=== PATIENT | female | born 1950 | race Caucasian/White ===

== ENCOUNTER 2019-06-15 11:30 | Emergency (ER) | payer MEDICARE ==
--- OUTSIDE RECORDS SUMMARY | 2019-06-15 11:51 | XMS REPORT | Continuity of Care Document ---
:1950 External Reference #:[id number] Author Name Kelly Durant M.D. Address [address] [facility] [place] [address] Care Team Providers Name Role Phone Kelly Durant Care Team Information Automation Tech Unavailable Kelly Durant Primary Care Physician Unavailable Payers Date Identification Numbers Payment Provider Subscriber Effective: 2018 Policy Number: [id number] [employer] Medicare o [employer] Number: [id number] [id number] PayID: [id number] [place] [address] Family History Date Family Member(s) Observation Comments General No fam hx lung,colon, breast CA. Father 81, pneumonia. Mother 73 Stomach Cancer. First Daughter excellent health. First Brother colectomy - Crohn's, DM. [place] Second Brother not close. First Sister 67 dt transverse myelitis x 27 yrs, wheelchair bound, due to virus. Social History Type Date Description Comments Sex Unknown Education Highest level of education completed is a bachelor's degree. [employer], [place]. Marital Status Patient is Sleep Typically sleeps 7 hours a night. 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 Tobacco Use Start: Unknown Never Smoked Cigarettes Smoking Status Reviewed: 04/25/19 Never Smoked Cigarettes ETOH Use Some 3-4 glasses of wine a week. Tobacco Use Start: Unknown Patient has never smoked Exercise Type/Frequency goes to gym 6/7 days, Current walks on Sunday with a friend - 30 minutes. includes strength training. Seat Belt/Car Seat Always uses a seat belt Allergies, Adverse Reactions, Alerts Active Allergies Reaction Severity Comments Date Flu Virus Vaccine throat closes 07/25/2013 Inactive Allergies NKDA 10/13/2011 Medications Active Medications SIG Qnty Indications Ordering Provider Date Pravastatin Sodium take one tablet 30tabs E78.49 Kelly Durant, 2018 10mg by mouth one M.DLuz Tablets time at night History Medications No Active Medications Unknown 07/31/2017 - 04/25/2019 Vitamin D take 1 capsule 12caps Kelly Mullins 10/27/2015 - (Ergocalciferol) by mouth once Mariely Durant 07/31/2017 [id number] weekly for 12 Capsules weeks. mail to patient. Cyclobenzaprine HCL 1-2 by mouth at 30tabs S29.012 Rona Diaz, 2015 - 5mg bedtime as A LICENSED AND CERTIFIED MIDWIFE 07/31/2017 Tablets needed No Active Medications Unknown 06/21/2013 - 10/19/2015 Prednisone 2 po qd x 5d, 15tabs Lily 06/11/2013 - 20mg Tablets then 1 po qd x Sharona Beasley 06/21/2013 5d take with food No Active Medications Unknown 02/07/2013 - 06/11/2013 Azithromycin take 2 tablets 6tabs 786.2 Rona Diaz, 12/20/2012 - 250mg Tablets by mouth today LICENSED AND CERTIFIED MIDWIFE 02/07/2013 then take 1 tablet daily for next 4 days No Active Medications Unknown 10/13/2011 - 12/20/2012 Tessalon Perles one to two tabs 30caps 465.9 Getachew López 12/26/2007 - 100mg po tid prn Mariely De La Rosa 07/29/2008 Capsules cough Doxycycline Hyclate 1 po bid 20caps 465.9 Getachew Lo. 12/26/2007 - 100mg Mariely De La Rosa 07/29/[address] Erick Berrios 2 tabs day 1 6tabs Cheyanne bolivar 09/19/2006 - 250mg Tablets Mariely Núñez 04/26/2007 1 tab qd days 2 thru 5 Immunizations CPT Code Status Date Vaccine Lot # [id number] Given 10/22/2015 Pneumococcal Conjugate Vacc-13 [id number] Given 07/24/2013 High-Dose, Influenza Virus Vacccine-fluzone 65 and [id number] older [id number] Given 02/07/2013 Pneumococcal Immunization [id number] Given 02/07/2013 Tdap Tetanus, W Pertussis [id number] Vital Signs Date Vital Result Comment 04/25/2019 2:13pm BP Systolic 130 mmHg BP Diastolic 70 mmHg Heart Rate 64 /min Body Temperature 97.3 F Respiratory Rate 16 /min Height 58.5 inches 4'10.50" Weight 117.00 lb BMI (Body Mass Index) 24.0 kg/m2 01/21/2019 4:13pm BP Systolic 128 mmHg BP Diastolic 70 mmHg Heart Rate 60 /min Body Temperature 97.9 F Height 59 inches 4'11" Weight 118.00 lb BMI (Body Mass Index) 23.8 kg/m2 07/31/2018 4:01pm BP Systolic 100 mmHg BP Diastolic 74 mmHg BP Systolic Recheck 170 mmHg Heart Rate 68 /min Body Temperature 98.7 F Respiratory Rate 16 /min Weight 119.00 lb 05/14/2018 10:31am BP Systolic 148 mmHg BP Diastolic 80 mmHg Heart Rate 56 /min Body Temperature 97.9 F Respiratory Rate 16 /min Weight 120.12 lb 01/01/2018 10:23am BP Systolic 116 mmHg BP Diastolic 78 mmHg Heart Rate 62 /min Body Temperature 97.9 F Weight 124.12 lb 07/31/2017 11:17am BP Systolic 138 mmHg BP Diastolic 80 mmHg Heart Rate 68 /min Body Temperature 98.0 F Respiratory Rate 16 /min Height 59 inches 4'11" Weight 127.00 lb BMI (Body Mass Index) 25.6 kg/m2 10/22/2015 1:05pm BP Systolic 136 mmHg BP Diastolic 80 mmHg Heart Rate 80 /min Body Temperature 98.1 F Respiratory Rate 16 /min Height 59 inches 4'11" Weight 127.00 lb BMI (Body Mass Index) 25.6 kg/m2 10/19/2015 2:50pm BP Systolic 142 mmHg BP Diastolic 70 mmHg Heart Rate 78 /min Body Temperature 98.8 F Respiratory Rate 16 /min Height 59 inches 4'11" Weight 127.00 lb BMI (Body Mass Index) 25.6 kg/m2 06/11/2013 10:23am BP Systolic 130 mmHg BP Diastolic 82 mmHg Heart Rate 80 /min Body Temperature 98.3 F Respiratory Rate 16 /min Height 59 inches 4'11" Weight 128.00 lb BMI (Body Mass Index) 25.9 kg/m2 02/07/2013 1:01pm BP Systolic 122 mmHg BP Diastolic 80 mmHg Heart Rate 70 /min Body Temperature 97.6 F Respiratory Rate 16 /min Height 59 inches 4'11" Weight 126.00 lb BMI (Body Mass Index) 25.4 kg/m2 12/20/2012 10:37am BP Systolic 122 mmHg BP Diastolic 82 mmHg Heart Rate 85 /min Body Temperature 98.3 F Respiratory Rate 16 /min O2 % BldC Oximetry 95 % Height 59 inches 4'11" Weight 128.00 lb BMI (Body Mass Index) 25.9 kg/m2 10/13/2011 4:29pm BP Systolic 138 mmHg BP Diastolic 90 mmHg Heart Rate 54 /min Height 59 inches 4'11" Weight 132.00 lb BMI (Body Mass Index) 26.7 kg/m2 11/01/2009 9:09am BP Systolic 110 mmHg BP Diastolic 76 mmHg Heart Rate 74 /min Height 59 inches 4'11" Weight 130.00 lb BMI (Body Mass Index) 26.3 kg/m2 07/29/2008 2:35pm BP Systolic 122 mmHg BP Diastolic 80 mmHg Heart Rate 64 /min Body Temperature 98.2 F Height 59.5 inches 4'11.50" Weight 131.00 lb BMI (Body Mass Index) 26.0 kg/m2 12/26/2007 4:03pm BP Systolic 130 mmHg BP Diastolic 70 mmHg Heart Rate 80 /min Body Temperature 100.9 F Height 59.5 inches 4'11.50" 04/26/2007 2:23pm BP Systolic 120 mmHg BP Diastolic 70 mmHg Heart Rate 60 /min Height 59.5 inches 4'11.50" Weight 127.00 lb BMI (Body Mass Index) 25.2 kg/m2 09/19/2006 12:38pm Heart Rate 68 /min Body Temperature 98.8 F Height 59.5 inches 4'11.50" Weight 131.00 lb BMI (Body Mass Index) 26.0 kg/m2 10/20/2005 3:24pm BP Systolic 102 mmHg BP Diastolic 60 mmHg Heart Rate 60 /min Height 59.5 inches 4'11.50" Weight 139.62 lb BMI (Body Mass Index) 27.7 kg/m2 Results Test Date Facility Test Result H/L Range Note Comprehensive Metabolic 04/18/2019 Og Rebecca(fma) Sodium 135 mEq/L 134-149 Prof Potassium 4.3 mEq/L 3.6-5.5 Chloride 103 mEq/L 94-112 Carbon Dioxide 23 mEq/L 21-32 Glucose 98 mg/dL 70-105 BUN 15 mg/dL 6-26 Creatinine 0.8 mg/dL 0.6-1.4 BUN/Creat Ratio 18.8 CALC 8.0-36.0 Calcium 9.3 mg/dL 8.6-10.2 Total Protein 6.9 g/dL 6.4-8.3 Albumin 4.3 g/dL 3.8-5.5 Globulin 2.6 g/dL 2.0-4.8 A/G Ratio 1.7 CALC 0.6-2.3 Alk. Phosphatase 75 U/L 30-110 Alt (SGPT) 11 U/L 7-35 Ast (Sgot) 17 U/L 5-34 Total Bilirubin 0.8 mg/dL 0.2-1.3 GFR Non- >60 ml/min/1.73m^ >=60 GFR >60 ml/min/1.73m^ >=60 Laboratory test finding 04/18/2019 Og Rebecca(a) TSH 1.85 mIU/L 0.50-6.00 CBC Electronic Fma 04/18/2019 Og Rebecca(a) WBC 4.8 x10^3/UL 4.0- 10.0 RBC 4.41 x10^6/UL 3.93-6.00 HGB 13.0 g/dL 12.0-17.0 HCT 39 % 35-50 MCV 87.8 fL 80.0-95.0 MCH 29.5 pg 25.6-32.2 MCHC 33.6 g/dL 32.2-36.0 RDW-CV 12.3 % 11.6-14.4 PLT 137 x10^3/UL Low 163-400 1 MPV 12.2 fL 9.4-12.4 Ruchi# 3.02 x10^3/UL 1.56-6.13 Lymph# 1.23 x10^3/UL 1.18-3.74 [place]# 0.45 x10^3/UL 0.24-0.82 Eos # 0.1 x10^3/UL 0.0-0.5 Baso # 0.04 x10^3/UL 0.01-0.08 Ruchi% 62.4 % 34.0-70.0 Lymph % 25.4 % 20.0-52.0 [place]% 9.3 % 5.0-12.0 Eos% 1.9 % 0.7-7.0 Baso% 0.8 % 0.1-1.2 Lipid Profile 12/30/2018 Earle Rebecca([facility]) Cholesterol 233 mg/dL High 120-200 Triglycerides 80 mg/dL 30-200 HDL Cholesterol 71 mg/dL 30-85 LDL (Calculated) 146 CALC High 0-129 VLDL Cholesterol 16 mg/dL 0-50 HDL Risk Factor 3.3 CALC 0.0-4.4 Lipid Profile 07/25/2018 Earle Rebecca([facility]) Cholesterol 257 mg/dL High 120-200 Triglycerides 154 mg/dL 30-200 HDL Cholesterol 78 mg/dL 30-85 LDL (Calculated) 148 CALC High 0-129 VLDL Cholesterol 31 mg/dL 0-50 HDL Risk Factor 3.3 CALC 0.0-4.4 Laboratory test finding 01/01/2018 Earle Fernandez([facility]) TSH 2.22 mIU/L 0.50-6.00 CBC Electronic a 01/01/2018 Earle Fernandez([facility]) WBC 4.7 x10^3/UL 4.0- 10.0 RBC 4.54 x10^6/UL 3.93-6.00 HGB 13.3 g/dL 12.0-17.0 HCT 39 % 35-50 MCV 86.6 fL 80.0-95.0 MCH 29.3 pg 25.6-32.2 MCHC 33.8 g/dL 32.2-36.0 RDW-CV 12.2 % 11.6-14.4 PLT 183 x10^3/UL 163-400 MPV 10.3 fL 9.4-12.4 Ruchi# 2.88 x10^3/UL 1.56-6.13 Lymph# 1.32 x10^3/UL 1.18-3.74 [place]# 0.39 x10^3/UL 0.24-0.82 Eos # 0.1 x10^3/UL 0.0-0.5 Baso # 0.03 x10^3/UL 0.01-0.08 Ruchi% 61.6 % 34.0-70.0 Lymph % 28.3 % 20.0-52.0 [place]% 8.4 % 5.0-12.0 Eos% 1.1 % 0.7-7.0 Baso% 0.6 % 0.1-1.2 Comprehensive Metabolic 01/01/2018 Earle Fernandez([facility]) Sodium 141 mEq/L 134-149 Prof Potassium 3.9 mEq/L 3.6-5.5 Chloride 103 mEq/L 94-112 Carbon Dioxide 32 mEq/L 21-32 Glucose 101 mg/dL 70-105 BUN 14 mg/dL 6-26 Creatinine 0.7 mg/dL 0.6-1.4 BUN/Creat Ratio 20.0 CALC 8.0-36.0 Calcium 9.2 mg/dL 8.6-10.2 Total Protein 7.2 g/dL 6.4-8.3 Albumin 4.5 g/dL 3.8-5.5 Globulin 2.7 g/dL 2.0-4.8 A/G Ratio 1.7 CALC 0.6-2.3 Alk. Phosphatase 74 U/L 30-110 Alt (SGPT) 11 U/L 7-35 Ast (Sgot) 15 U/L 5-34 Total Bilirubin 0.5 mg/dL 0.2-1.3 GFR Non- >60 ml/min/1.73m^ >=60 GFR >60 ml/min/1.73m^ >=60 Lipid Profile 01/01/2018 Earle Fernandez([facility]) Cholesterol 242 mg/dL High 120-200 Triglycerides 79 mg/dL 30-200 HDL Cholesterol 70 mg/dL 30-85 LDL (Calculated) 156 CALC High 0-129 VLDL Cholesterol 16 mg/dL 0-50 HDL Risk Factor 3.5 CALC 0.0-4.4 Laboratory test 01/07/2016 [facility] Surgical SEE RESULT 2 finding Pathology BELOW Laboratory test 10/22/2015 Earle Fernandez([facility]) TSH 2.71 mIU/L 0.50-6. finding 00 Free T4 0.96 ng/dL 0.75-1.54 Vitamin D25 20 Low 30-100 Complete Blood Count 10/22/2015 Earle Fernandze([facility]) WBC 4.4 x10^3/UL 3.6 -9.6 RBC 3.95 x10^6/UL 3.90-5.70 HGB 10.8 g/dL Low 12.1-17.2 3 HCT 32 % Low 36-50 MCV 82.0 fL Low 82.2-97.4 MCH 27.3 pg Low 27.6-33.3 MCHC 33.3 g/dL 33.0-35.5 RDW 14.3 % High 11.6-13.7 PLT 181 x10^3/UL 150-400 MPV 8.8 fL 7.4-10.4 Gran # 2.8 x10^3/UL 1.5-7.2 Lymph# 1.4 x10^3/UL 0.7-4.9 [place]# 0.2 x10^3/UL 0.1-0.9 Gran % 60.1 % 42.2-75.2 Lymph % 33.4 % 20.5-51.1 [place]% 6.5 % 1.7-9.3 Comprehensive Metabolic 10/22/2015 Earle Rebecca(a) Sodium 138 mEq/L 134-149 Prof Potassium 4.2 mEq/L 3.6-5.5 Chloride 98 mEq/L 94-112 Carbon Dioxide 24 mEq/L 21-32 Glucose 103 mg/dL 70-105 BUN 14 mg/dL 6-26 Creatinine 0.7 mg/dL 0.6-1.4 BUN/Creat Ratio 20.0 CALC 8.0-36.0 Calcium 9.3 mg/dL 8.6-10.2 Total Protein 7.5 g/dL 6.4-8.3 Albumin 4.1 g/dL 3.8-5.5 Globulin 3.4 g/dL 2.0-4.8 A/G Ratio 1.2 CALC 0.6-2.3 Alk. Phosphatase 75 U/L 30-110 Alt (SGPT) 11 U/L 7-35 Ast (Sgot) 20 U/L 5-34 Total Bilirubin 0.3 mg/dL 0.2-1.3 GFR Non- >60 ml/min/1.73m^ >=60 GFR >60 ml/min/1.73m^ >=60 Ua - Micro (Fma) 02/07/2013 [facility] Appearance CLEAR (607)- - Color YELLOW Glucose NEG Bilirubin NEG Ketones NEG SP Grav <=1.005 Blood NEG PH 5.5 Protein NEG Urobil 0.2 Nitrite NEG Leukocytes (Fma/CMC/[facility]) TRACE # Hyaline - /Lpf Granular - /Lpf WBC (a,[facility]) 0-1 # RBC - Mucus - /Lpf Epith - /Lpf Bacteria - /Hpf Amorphous - /Lpf Crystals, Fluid (Fma/CMC/CTX) - Z#Comments - CBC Electronic ([facility]) 02/07/2013 [facility] WBC 4.8 3.6-9.6 (607)- - RBC 3.93 3.90-5.70 Hemoglobin (Fma/CMC/CTX) 11.2 g/dL Low 12.1 - 17.2 Hematocrit (Fma/CMC/CTX) 33.8 % Low 36.1 - 50.3 Platelets 230 10^3/ul 150-400 Lymph% 36.7 20.5-51.1 Mixed% 6.6 Neutrophils % 56.7 Mean Corpuscular Vol 86 82.2-97.4 Mean Corpuscular Hemoglobin 28.4 27.6-33.3 Mean Corpuscular Hemo Concen 33.0 32.0-36.0 RDW 12.2 11.6-13.7 Mean Platelet Volume 6.3 Low 6.5-11.0 Laboratory test 02/07/2013 Og Reebcca([facility]) TSH 2.09 mIU/L 0.50-6.00 finding Comprehensive 02/07/2013 Og Rebecca(a) Albumin 4.3 g/dL 3.8-5.5 Metabolic Prof Alk. Phos. 83 U/L 30-110 Alt (SGPT) 13 U/L 7-35 Ast (Sgot) 20 U/L 5-34 BUN 13 mg/dL 6-26 Calcium 9.0 mg/dL 8.6-10.2 Chloride 99 mEq/L 94-112 Creatinine 0.9 mg/dL 0.6-1.4 Carbon Dioxide 27 mEq/L 21-32 Glucose 102 mg/dL 70-105 Sodium 137 mEq/L 134-149 Total Bilirubin 0.5 mg/dL 0.2-1.3 Total Protein 7.1 g/dL 6.3-8.1 Potassium 3.7 mEq/L 3.6-5.5 Globulin 2.8 g/dL 2.0-4.8 A/G Ratio 1.6 Calc 0.6-2.3 BUN/Creat Ratio 14.9 Calc 8.0-36.0 Laboratory test 02/07/2013 Og Rebecca(a) Free T4 0.94 ng/dL 0.75- 1.54 finding Ua - Micro ([facility]) 11/01/2009 [facility] Appearance CLEAR (607)- - Color YELLOW Glucose NEG Bilirubin NEG Ketones NEG SP Grav <=1.005 Blood TRACE-INTACT # PH 6.0 Protein NEG Urobil 0.2EU/DL Nitrite NEG Leukocytes (Fma/CMC/[facility]) NEG Hyaline - /Lpf Granular - /Lpf WBC (Fma,[facility]) 1-2 # RBC 2-3 # Mucus - /Lpf Epith RARE /Lpf # Bacteria - /Hpf Amorphous - /Lpf Crystals, Fluid (Fma/CMC/CTX) - CBC ([facility]) 11/01/2009 [facility] WBC 4.3 3.6-9.6 (607)- - RBC 4.01 3.90-5.70 Hemoglobin (Fma/CMC/CTX) 11.6 g/dL Low 12.1 - 17.2 Hematocrit (Fma/CMC/CTX) 34.3 % Low 36.1 - 50.3 Mean Corpuscular Vol 85.5 82.2-97.4 Mean Corpuscular Hemaglobin 28.9 27.6-33.3 Mean Corpuscular Hemo Concen 33.8 33.0-36.0 Platelets 193 10^3/ul 150-400 Lymph% 27.1 20.5-51.1 Mixed% 7.5 Neutrophils % 65.4 RDW 12.6 11.6-13.7 Mean Platelet Volume 9.5 7.4-10.4 Laboratory test 11/01/2009 [facility] Vitamin 52.9 pg/mL 10.0-75.0 finding 28 [facility],,[address] [place] [address] Dihydro [phone] Comprehensive 11/01/2009 Og Rebecca(a) Albumin 4.4 g/dL 3.8-5.5 Metabolic Prof Alk. Phos. 65 U/L 30-110 Alt (SGPT) 13 U/L 7-35 Ast (Sgot) 20 U/L 5-34 BUN 15 mg/dL 6-26 Calcium 9.5 mg/dL 8.6-10.2 Chloride 98 mEq/L 94-112 Creatinine 0.8 mg/dL 0.6-1.4 Carbon Dioxide 28 mEq/L 21-32 Glucose 100 mg/dL 70-105 Sodium 136 mEq/L 134-149 Total Bilirubin 0.4 mg/dL 0.2-1.3 Total Protein 7.4 g/dL 6.3-8.1 Potassium 4.2 mEq/L 3.6-5.5 Globulin 3.0 g/dL 2.0-4.8 A/G Ratio 1.5 Calc 0.6-2.2 BUN/Creat Ratio 18.2 Calc 8.0-36.0 Lipid Profile 11/01/2009 Og Rebecca(a) Cholesterol 208 mg/dL High 120-200 HDL 65 mg/dL 30-85 Triglycerides 72 mg/dL 30-200 HDL Risk Factor 3.2 CALC Low 4.2-7.0 LDL (Calculated) 129 CALC 0-129 VLDL (Calculated) 14 mg/dL 0-50 Laboratory test 11/01/2009 Og Rebecca(a) TSH 2.42 mIU/L 0.50-6.00 finding Laboratory test 11/01/2009 [facility] Thin Prep SEE NOTE [address] W/HPV(Lsil/R[place]EE/ [place] [address] Asc) [phone] Ua - Non Micro 04/26/2007 [facility] Medicine Appearance CLEAR ([facility]) (607)- - Color LT YELLOW Glucose NEG Bilirubin NEG Ketones NEG SP Grav 1.015 Blood NEG PH 7.0 Protein NEG Urobil 0.2 Nitrite NEG Leukocytes (Fma/CMC/[facility]) NEG Laboratory test 04/26/2007 [facility] Thin Prep SEE NOTE [address] W/HPV(Lsil/RENEE/Asc) [place] [address] [phone] Comp Metabolic 10/27/2005 [facility] Glucose, Serum 103 70-1 (a) Female (607)- - (Fma/CMC/CTX) mg/dL 05 BUN (Fma/CMC/[facility]) 14 mg/dL 6-26 Creatinine, Serum 0.8 mg/dL 0.6-1.4 BUN/Creatinin Ratio 16.5 8.0-36 Sodium 140 134-149 Potassium 4.1 3.6-5.5 Chloride 96 mEq/L 94-112 Co2 28 21-32 Calcium (Fma/CMC/[facility]) 9.3 mg/dL 8.6-10.2 Total Protein 7.4 g/dL 6.3-8.1 Albumin (a/CMCC/[facility]) 4.1 3.8-5.5 Globulin 3.3 2.0-4.8 A/G Ratio (A/G Ratio) 1.2 0.6-2.2 Alkaline Phosphatase (F/C/CTX) 90 U/L 30-110 Alt (SGPT) Female ([facility]) 9 7-35 Ast Sgot 18 U/L 5-34 Bilirubin, Total 0.8 mg/dL 0.2-1.3 Lipid Profile ([facility]) 10/27/2005 [facility] Medicine Cholesterol 229 mg/dL High 120-200 Female (607)- - Triglyceride 83 mg/dL 30-200 HDL-Chol 72 mg/dL 30-85 LDL, Calculated (Fma/CMC) 140 CALC High 0-129 LDL Direct (FM/CMC/[facility]) - mg/dL 0-130 VLDL 17 0-50 HDL Risk Factor ([facility]) 3.2 CALC Low 4.2-7.0 Ua - Non Micro ([facility] [place]) 10/20/2005 Family [facility] Appearance clear (607)- - Color lt yellow Glucose neg Bilirubin neg Ketones neg SP Grav 1.010 Blood neg PH 6.5 Protein neg g/dL Low 6.3-8.1 Urobil 0.2 Nitrite neg Leukocytes neg 1 RESULTS VERIFIED BY REPEAT ANALYSIS 2 SEE RESULT BELOW Name: LIGIAPJ DELEON : [address]: Jj Waddell MD Acct: [id number] Unit: [id number] AGE: 65 Location: ENDOCEC Re01/07/16 SEX: F Status: REG REF SPEC: [id number] MARCIA: 01/07/16- SUBM DR: Jj Waddell MD REQ: [id number] RECD: 01/07/16 STATUS: SURY BAR DR: Kelly Durant MD _ ORDERED: LEVEL IV/2 FINAL DIAGNOSIS 1. Colon, cecum, biopsy: -- Tubular adenoma. -- No high grade dysplasia or malignancy. 2. 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 CLINICAL HISTORY No history given POST-OPERATIVE DIAGNOSIS Colonoscopy into terminal ileum: prep good, 3 polyps - removed. Conclusions/ Plan: 3 polyps - removed. GROSS DESCRIPTION 1. The specimen is received in formalin labeled, Cecal Polyps, and consists of two ellison-pink irregular to polypoid soft tissue fragments measuring 0.7 x 0.3 x 0.2 cm and 0.6 x 0.5 x 0.2 cm. The larger fragment is inked and bisected. The entire specimen is submitted in one cassette. 2. The specimen is received in formalin labeled, Biopsy Rectal Polyp, and consists of a 0.3 x 0.3 x 0.2 cm ellison-pink polypoid soft tissue fragment, which is entirely submitted in one cassette. Signed (signature on file) Chris Ball MD [id number] END OF REPORT * ML = Testing performed at Main Lab DEPARTMENT OF PATHOLOGY, [address] [place] [address] Chris Ball M.D. Director [facility] # [id number] 3 RESULTS VERIFIED BY REPEAT ANALYSIS 4 [facility]. DEPARTMENT OF PATHOLOGY or Extension 5813 RECORDIST CYTOLOGY REPORT PATIENT: PJ FERGUSON : 1950 AGE: 59 Y SEX: F ACCT: [id number] PROCEDURE DATE: 11/01/2009 DATE RECEIVED: 11/02/2009 REQUESTING PHYSICIAN: CHEYANNE DOMINGO MD [place] [facility] [place]. [id number] PATIENT DATA: [id number] SPECIMEN SUBMITTED: * * (HPVII) THIN PREP W/HPV (LSIL/ASC/RENEE) * * CERVICAL/ENDOCERVICAL RELEVANT HISTORY: : 1 Para: 1 Prev.normal: 2006 Comment: LMP:POST SPECIMEN ADEQUACY SATISFACTORY FOR EVALUATION, ENDOCERVICAL TRANSFORMATION ZONE COMPONENT PRESENT GENERAL CATEGORIZATION NEGATIVE FOR INTRAEPITHELIAL LESIONS OR MALIGNANCY ADDITIONAL COPIES SENT TO: Screened/Rescreened by: Electronically Signed by: TERRANCE JEAN BAPTISTE(ASCP) Signed Date/Time 11/03/2009 14:09 Thin Prep Pap tests are examined with an FDA-approved location-guidance system (14278). Performed @ [facility] [address] [place] [id number] "" 5 [facility]. DEPARTMENT OF PATHOLOGY or Extension 7059 RECORDIST CYTOLOGY REPORT PATIENT: PJ FERGUSON : 1950 AGE: 57 Y SEX: F ACCT: [id number] PROCEDURE DATE: 04/26/2007 DATE RECEIVED: 04/29/2007 REQUESTING PHYSICIAN: CHEYANNE DOMINGO MD LOCATION: [facility] [place]. [id number] PATIENT DATA: [id number] SPECIMEN SUBMITTED: * * (HPVII) THIN PREP W/HPV (LSIL/ASC/RENEE) * * ENDOCERVICAL RELEVANT HISTORY: : 1 Para: 1 Contraceptive: N/A Prev.normal: 2004 SPECIMEN ADEQUACY SATISFACTORY FOR EVALUATION. THE PRESENCE OF TRANSFORMATION ZONE COMPONENT CANNOT BE DETERMINED DUE TO ATROPHIC CHANGES. GENERAL CATEGORIZATION NEGATIVE FOR INTRAEPITHELIAL LESIONS OR MALIGNANCY ADDITIONAL COPIES SENT TO: Screened/Rescreened by: Electronically Signed by: TERRANCE SANDY(ASCP) Signed Date and Time: 05/01/2007 10:08 Thin Prep Pap tests are examined with an FDA-approved location-guidance system (82154). Performed @ [facility], [address] [place], [place] [address] Procedures Date Code Description Status 01/21/2019 90195 Electrocardiogram Complete Completed 06/07/2017 92559341 Mammogram Completed 01/07/2016 62328520 Colonoscopy Completed 07/30/2014 [id number] Mammogram Completed 12/20/2012 26084 Pulse Oximetry Completed 10/20/2011 49603253 Mammogram Completed 11/11/2009 [id number] Mammogram Completed 05/03/2007 [id number] Mammogram Completed Encounters Type Date Location Provider Dx Diagnosis Office Visit 01/21/2019 [facility] Office Kelly Mullins E78.49 Other hyperlipidemia 3:00p Mariely Durant R03.0 Elevated blood-pressure reading, w/o diagnosis of htn R94.31 Abnormal electrocardiogram [ECG] [EKG] Office Visit 07/31/2018 [facility] Office Kelly Mullins E78.49 Other 3:20p Mariely Durant hyperlipidemia Office Visit 05/14/2018 Main Office Kelly Mullins E78.4 Other 10:20a Mariely Durant hyperlipidemia Office Visit 07/31/2017 [facility] S39.011A Strain of muscle, 11:30a Office [place], fascia and tendon Afnp-C of abdomen, init encntr X50.3xxA Overexertion from repetitive movements, initial encounter Office Visit 10/22/2015 1:00p Main Office Kelly Mullins Z00.01 Encounter for Mariely Durant general adult medical exam w abnormal findings 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 E55.9 Vitamin D deficiency, unspecified E78.4 Other hyperlipidemia Z23 Encounter for immunization Office Visit 10/19/2015 2:45p Main Office NISHA DamonP S29.012A Strain of muscle and tendon of back wall of thorax, init Y93.89 Activity, other specified Office Visit 06/11/2013 10:30a Main Office Lily 692.6 Dermatitis [place], Afnp-C Contact Due To Plants (Except Food) Office Visit 02/07/2013 1:00p [facility] Kelly Mullins V70.0 Examination Mariely Durant General Medical Routine AT Health Care Facility 327.23 Obstructive Sleep Apnea Adult Pediatric 704.2 Hair Abnormlities 791.7 Cells & Casts In Urine Other V06.5 Tetanus Diphtheria (DT) V03.82 Streptococcus Pneumoniae Vaccination Spec Other V76.49 Special Screening For Malignant Neoplasms, Other Sites Office Visit 12/20/2012 10:30a Main Office Rona Diaz, 786.2 Cough LICENSED AND CERTIFIED MIDWIFE Office Visit 10/13/2011 4:15p [facility] Saira Fuentes, 611.79 Breast Signs & Afnp-C Symptoms Other Office Visit 11/01/2009 9:00a Main Office Cheyanne bolivar V70.0 Examination Mariely Núñez General Medical Routine AT Health Care Facility V72.31 Routine Enforcement Manager Examination 272.4 Hyperlipidemia Other Unspec 733.09 Osteoporosis Other 599.72 Microscopic Hematuria Office Visit 07/29/2008 2:40p [facility] Getachew López 789.04 Pain Abdominal Mariely De La Rosa Left Lower Quadrant Office Visit 12/26/2007 3:40p [facility] Getachew López 465.9 URI Upper Mariely De La Rosa Respiratory Infections Acute Unspec Sites Office Visit 04/26/2007 2:00p [facility] Cheyanne bolivar 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 General Medical Routine AT Health Care Facility V10.83 History Personal Malignant Neoplasm Of The Skin Other Plan of Treatment 04/25/2019 - Kelly Durant M.D.Z00.00 Encounter for general adult medical examination without abnoComments:You are in excellent general health. I recommend regular physical exams with attention to good nutrition and exercise, eye exams every other year, and dental exams twice yearly. Goals:2 fresh fruits daily3 helpings of fresh green and multicolored vegetablesEat from the whole color spectrum. 40-60 Oz water dailyMOVE YOUR BODY. Bodies were made to be moved. exercise 30 minutes at least 4-5 times paevmaJ32.49 Other hyperlipidemiaNew Medication:Pravastatin Sodium 10 mg - take one tablet by mouth one time at nightNew Labs:CCC-Comp+Lipid (Fma), Ordered: 04/25/19Creatine Kin, Total (F/C/CTX), Ordered: 04/25/19R03.0 Elevated blood-pressure reading, without diagnosis of hypertComments:You do NOT have high blood pressure. You're echocardiogram is normal.Z12.31 Encounter for screening mammogram for malignant neoplasm of breastNew Xrays:Mammography Screening, Bilateral; 2-View Each Breast , Ordered: 04/25/19AllComments:Medication Management Patient Understands medications she's taking? Yes No Are there Barriers to Adherence? Yes No Has the patient been asked about herbal supplements and therapies, and OTC meds? Yes No
--- OUTSIDE RECORDS SUMMARY | 2019-06-15 11:51 | XMS REPORT | Continuity of Care Document ---
:1950 External Reference #:[id number] Author Name Davey Mahoney, OD Address [address] [place] [address] Care Team Providers Name Role Phone Kelly Mathias MD Care Team Information Aircraft Engine Technician [phone] Problems Active Problems Provider Date Nuclear senile cataract Lennox Womack M.D. Onset: 03/13/2014 Myopia Lennox Womack M.D. Onset: 03/13/2014 Presbyopia Davey Hewitt O.D. 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 Onset: 11/09/2016 Social History Type Date Description Comments Sex Unknown ETOH Use Currently consumes alcohol Tobacco Use Start: Unknown Patient has never smoked Smoking Status Reviewed: 06/13/19 Patient has never smoked Allergies, Adverse Reactions, Alerts Description No Known Drug Allergies Medications Active Medications SIG Qnty Indications Ordering Provider Date Pravastatin Sodium Unknown 10mg Tablets Immunizations Description No Information Available Vital Signs Date Vital Result Comment 05/03/2018 10:39am Intraocular Pressure Right Eye 17 mmHg Intraocular Pressure Left Eye 17 mmHg 11/09/2016 10:30am Intraocular Pressure Right Eye 18 mmHg Intraocular Pressure Left Eye 18 mmHg Results Description No Information Available Procedures Description No Information Available Medical Devices Description No Information Available Encounters Description No Information Available Assessments Date Code Description Provider 06/13/2019 H25.813 Combined forms of age-related cataract, Davey Mahoney, OD bilateral Plan of Treatment 06/13/2019 - Davey Mahoney, ODH25.813 Combined forms of age-related cataract, bilateralFollow up:DFE/A-scans OU with dr womack Functional Status Description No Information Available Mental Status Description No Information Available Referrals Description No Information Available
[2019-06-15] MEDS ORDERED: Ibuprofen TAB* 400 MG PO ONE (12:25)
--- NOTE | 2019-06-15 12:35 | ED ---
Lower Extremity - HPI Summary HPI Summary: This pt is a 69 Y/O F presenting to [facility] accompanied by her with a CC of R leg pain that occurred after a fall at 0715 this morning and is currently rated a 7/10 in severity. She states that she fell down 3 stairs while carrying items up from her cellar and fell backwards. She states that the pain started in her R knee and now the pain is radiating to the rest of the leg. She also states that she hit the back of her head on the floor. She denies any LOC. She states that as time went on the pain increased and she was unable to walk. She states that she was icing on and off for 20 minutes about 1 hr and 30 minutes ago with good relief. She denies any tingling or numbness in her toes. She also denies any fevers, CP, SOB, headaches, N/V, diaphoresis, and disturbances in vision. She states that she has aggravated symptoms when she stands on her legs for extended periods of time. She has a PMHx of hypercholesterolemia. - History of Current Complaint Chief Complaint: EDExtremityUpper Stated Complaint: RT LEG INJURY PER PT Time Seen by Provider: 06/15/19 12:14 Hx Obtained From: Patient Mechanism Of Injury: Fall From Height Of: - states she fell down 3 stairs Onset of Pain: Post Accident Onset/Duration: Worse Since - onset Severity Initially: Moderate Severity Currently: Moderate Pain Intensity: 7 Pain Scale Used: 0-10 Numeric Timing: Constant Location: Is Diffuse - R lower leg Associated Signs And Symptoms: Positive: Swelling, Knee Pain - R knee pain Aggravating Factor(s): Weight Bearing Alleviating Factor(s): Ice Able to Bear Weight: Yes - Allergies/Home Medications Allergies/Adverse Reactions: Allergies Allergy/AdvReac Type Severity Reaction Status Date / Time No Known Allergies Allergy Verified 06/15/19 11:34 PMH/Surg Hx/FS Hx/Imm Hx Previously Healthy: Yes Cardiovascular History: Reports: Hx Hypercholesterolemia Respiratory History: Reports: Hx Pneumonia Musculoskeletal History: Reports: Hx Orthopedic Injury - bilateral wrist FX ( different times) Sensory History: Reports: Hx Contacts or Glasses Opthamlomology History: Reports: Hx Contacts or Glasses - Surgical History Surgical History: None - Immunization History Immunizations Up to Date: Yes Infectious Disease History: No Infectious Disease History: Denies: Traveled Outside the [place] in Last 30 Days - Social History Occupation: Retired Lives: With Family Alcohol Use: Occasionally Hx Substance Use: No Substance Use Type: Reports: None Hx Tobacco Use: No Smoking Status (MU): Never Smoked Tobacco Review of Systems Negative: Fever, Chills, Skin Diaphoresis Eyes: Negative Negative: Chest Pain Negative: Shortness Of Breath Negative: Vomiting, Nausea Positive: Other - R knee pain Neurological: Negative - LOC Negative: Headache All Other Systems Reviewed And Are Negative: Yes Physical Exam - Summary Physical Exam Summary: General: Well-developed, Well-nourished female. No acute distress. HEENT: Normocephalic, Atraumatic. Eyes: Conjuctiva normal, PERRL. Ears: TMs within normal limits. Nares: (-) discharge, (-) erythema. Oropharynx: Clear, mucous membranes moist, (-) exudates. Neck: Soft, FROM, (-) lymphadenopathy, (-) thyromegaly, (-) JVD. Cardiovascular: Normal sinus rhythm, (-) murmur. Lungs: Clear to auscultation bilaterally (-) wheezes, (-) rales, (-) rhonchi. Abdomen: Soft, non-tender, non-distended, (-) organomegaly, normal bowel sounds. Back: (-) CVA tenderness Extremities: No edema. Lower Extremities: Swelling about the R knee and tenderness to palpation over the patellar. R lower leg posterior tenderness, Good ROM at the ankle, good capillary refill and pulses peripherally. Skin: Warm, dry, (-) rash. Neuro: Alert and oriented x3, no focal deficits. Psychiatric: Mood normal, affect normal. Triage Information Reviewed: Yes Vital Signs On Initial Exam: Initial Vitals Temp Pulse Resp BP Pulse Ox 99.4 F 79 16 162/100 98 06/15/19 11:31 06/15/19 11:31 06/15/19 11:31 06/15/19 11:31 06/15/19 11:31 Vital Signs Reviewed: Yes Diagnostics - Vital Signs Vital Signs Temp Pulse Resp BP Pulse Ox 06/15/19 11:31 99.4 F 79 16 162/100 98 - Laboratory Lab Statement: Any lab studies that have been ordered have been reviewed, and results considered in the medical decision making process. - Radiology Femur X-Ray Radiology Interpretation Completed By: Radiologist Summary of Radiographic Findings: IRREGULARITY ALONG THE INFERIOR JUNCTION OF THE FEMORAL HEAD AND NECK IS LIKELY RELATED TO OSTEOPHYTIC RIDGING. NO DEFINITE FRACTURE IS IDENTIFIED. THE PATIENT'S SYMPTOMS PERSIST SHORT-TERM FOLLOW-UP IMAGING IS RECOMMENDED. ED physician has reviewed this report. Knee X-Ray Radiology Interpretation Completed By: Radiologist Summary of Radiographic Findings: 1. Suspicious lucency along the lateral tibial plateau. If the patient is tender in this region a CT could be performed. 2. Moderate patellofemoral osteoarthropathy. 3. Osteopenia. ED physician has reviewed this report. Lower Extremity X-Ray Radiology Interpretation Completed By: Radiologist Summary of Radiographic Findings: Osteopenia with suspicious nondisplaced lucency extending along the lateral tibial plateau. This could be further evaluated by CT. ED physician has reviewed this report. - CT Lower Extremity CT CT Interpretation Completed By: Radiologist Summary of CT Findings: 1. Lateral tibial plateau fracture with impaction of the subjacent trabecular bone. There. is minimal if any depression of the fracture fragment. 2. Prepatellar soft tissue swelling with a moderate sized effusion. 3. A 6 mm foreign body is seen lateral to the distal femoral metaphysis. 4. Advanced patellofemoral compartment osteoarthropathy. 5. 1.1 x 1.1 cm De La Rosa's cyst. 6. Osteopenia. ED physician has reviewed this report. Lower Extremity Course/Dx - Course Course Of Treatment: This pt is a 69 Y/O F presenting [facility] accompanied by her with a CC of R leg pain that occurred after a fall at 0715 this morning and is currently rated a 7/10 in severity. She states that she fell down 3 stairs while carrying items up from her cellar and fell backwards. She states that the pain started in her R knee and now the pain is radiating to the rest of the leg. Her PE found that she had Swelling about the R knee and tenderness to palpation over the patellar, R lower leg posterior tenderness, Good ROM at the ankle, good capillary refill and pulses peripherally. The radiologist called at 1417 and stated that there is concern for a tibial plateau fracture. He stated that a CT scan would be better able to diagnosis if her tibia is fractured or not. Her Femur X-Ray found the following: IRREGULARITY ALONG THE INFERIOR JUNCTION OF THE FEMORAL HEAD AND NECK IS LIKELY RELATED TO OSTEOPHYTIC RIDGING. NO DEFINITE FRACTURE IS IDENTIFIED. THE PATIENT' S SYMPTOMS PERSIST SHORT-TERM FOLLOW-UP IMAGING IS RECOMMENDED. Her Knee X-Ray found the followin. Suspicious lucency along the lateral tibial plateau. If the patient is tender in this. region a CT could be performed. 2. Moderate patellofemoral osteoarthropathy. 3. Osteopenia. Her Lower Extremity X-Ray found the following: Osteopenia with suspicious nondisplaced lucency extending along the lateral tibial. plateau. This could be further evaluated by CT. Her Lower Extremity CT findings found the followin. Lateral tibial plateau fracture with impaction of the subjacent trabecular bone. There. is minimal if any depression of the fracture fragment. 2. Prepatellar soft tissue swelling with a moderate sized effusion. 3. A 6 mm foreign body is seen lateral to the distal femoral metaphysis. 4. Advanced patellofemoral compartment osteoarthropathy. 5. 1.1 x 1.1 cm De La Rosa's cyst. 6. Osteopenia. Se will be discharged home with a Dx of a tibial plateau fracture and instructed to follow up with Dr. Alvarado, orthopedics, in the morning. - Diagnoses Provider Diagnoses: Tibial plateau fracture - Physician Notifications Discussed Care Of Patient With: Leslie Alvarado Time Discussed With Above Provider: 15:53 Instructed by Provider To: Have Pt Call For Appt. - Dr. Alvarado, Orthopedic, recommended follow up care and knee immobolizer. Discharge ED - Sign-Out/Discharge Documenting (check all that apply): Patient Departure - discharge Patient Received Moderate/Deep Sedation with Procedure: No - Discharge Plan Condition: Stable Disposition: HOME Patient Education Materials: Leg Fracture (ED), Crutch Instructions (ED), Knee Immobilizer (ED) Referrals: Kelly Durant MD [Primary Care Provider] - 3 Days Leslie Alvarado MD [Medical Doctor] - 1 Day Additional Instructions: PLEASE RETURN TO THE EMERGENCY DEPARTMENT IMMEDIATELY FOR WORSENING OR CONCERNING SYMPTOMS AND FOLLOW UP WITH YOUR PRIMARY CARE PHYSICIAN IN 1-3 DAYS AND ALSO FOLLOW UP WITH DR. ALVARADO, ORTHOPEDICS, IN THE MORNING FOR FOLLOW UP CARE. Please take Ibuprofen 200 mgs three times a day as needed with food. - Billing Disposition and Condition Condition: STABLE Disposition: Home - Attestation Statements Document Initiated by Scribe: Yes Documenting Scribe: Gómez Andrea Provider For Whom Scribe is Documenting (Include Credential): Aura Rutledge MD Scribe Attestation: I, Gómez Andrea, scribed for Aura Rutledge MD on 06/15/19 at 1913. Scribe Documentation Reviewed: Yes Provider Attestation: The documentation as recorded by the [email or web address] accurately reflects the service I personally performed and the decisions made by me, Aura Rutledge MD Status of Scribe Document: Viewed
[2019-06-15 17:31] VITALS: BP 155/78
== END 2019-06-15 17:29 | disposition home or self-care (01) ==
LOC: ED 11:30
DX: S82.144A Nondisplaced bicondylar fracture of right tibia, initial encounter for closed fracture (principal); W10.9XXA Fall (on) (from) unspecified stairs and steps, initial encounter; Y93.89 Activity, other specified; Y92.008 Other place in unspecified non-institutional (private) residence as the place of occurrence of the external cause; M25.461 Effusion, right knee; M71.21 Synovial cyst of popliteal space [Baker], right knee; M85.861 Other specified disorders of bone density and structure, right lower leg; M16.11 Unilateral primary osteoarthritis, right hip
CPT/HCPCS: 99282; A9270-GY

== ENCOUNTER 2019-08-05 07:36 | Day surgery (SDC) | payer MEDICARE ==
[~2019-08-05 07:36] MED LIST: Acetaminophen TAB* 325 MG PO PRN; Buffered Lidocaine 1% SYRIN* 1 ML/SYRINGE INTRADERM ONE
[2019-08-05] MEDS ORDERED: fentaNYL* 50 MCG/ML 2 ML VIAL (100 MCG VIAL) ONE ×2 (08:21→09:13)
[2019-08-05] MEDS ORDERED: Midazolam* 1 MG/ML 5 ML VIAL (5 MG) ONE ×2 (08:21→09:13)
[2019-08-05 09:54] VITALS: BP 105/65
--- NOTE | 2019-08-05 10:21 | OP ---
DATE OF OPERATION: 08/05/19 [facility] DATE OF : 46 SURGEON: Dr. Lennox Womack. DATE PITTER: None. ANESTHESIA: Topical with intravenous sedation. PRE-OP DIAGNOSIS: Cataract, right eye. POST-OP DIAGNOSIS: Cataract, right eye. OPERATIVE PROCEDURE: Phacoemulsification and cataract extraction with posterior chamber intraocular lens implant, right eye. COMPLICATIONS: None. BLOOD LOSS: None. DESCRIPTION OF PROCEDURE: The patient was brought to the operating room and received a small amount of intravenous sedation. A drop of Tetracaine was placed in her right eye. She was prepped and draped in the usual sterile fashion for ophthalmic surgery and attention was directed to the right eye where a speculum was placed. A paracentesis was created at the 11 o'clock position and 0.1 cc of 1 percent preservative-free Lidocaine was injected into the anterior chamber followed by DisCoVisc. The eye was digitally stabilized while a 2.75 mm keratome was used to create a triplanar clear corneal incision at the 9 o'clock position. A continuous curvilinear capsulorrhexis was created with a cystotome and Utrata forceps. BSS on a cannula was used to hydrodissect the lens from the capsule. Phacoemulsification was performed in a divide-and- conquer technique to create four fragments which were removed. Residual cortical material was removed with irrigation and aspiration. DisCoVisc was used to inflate the capsular bag and an AU00T0 13.5 diopter lens was folded and inserted into the capsular bag. DisCoVisc was removed using irrigation and aspiration. BSS on a cannula was used to hydrate the corneal stroma and seal the wound. At the end of the case the pupil was round and the lens was centered. The eye was of normal pressure and the wound was water tight. The speculum was removed and topical Maxitrol ointment was placed on the surface of the eye. The eye was closed, patched and shielded and the patient was sent to the recovery room in stable condition with post operative instructions and follow-up appointment given. [id number]/CPS #: [id number] BLAYNE
[2019-08-05] MEDS ORDERED: Tropicamide 1% OPTH.SOL* BTL ONE (14:25)
[2019-08-05] MEDS ORDERED: Ketorolac 0.5% OPHTH (NF) 0.5 % 5 ML BTL ONE (14:25)
[2019-08-05] MEDS ORDERED: Cyclopentolate 1% OPTH.SOL* 2 ML BTL ONE (14:25)
[2019-08-05] MEDS ORDERED: Neomycin/Polymy/Dex OPHTH.OIN* 3.5 GM ONE (14:25)
[2019-08-05] MEDS ORDERED: Lidocaine 1% MPF ** 5 ML VIAL ONE (14:25)
[2019-08-05] MEDS ORDERED: Tetracaine 0.5% OPTH.SOL 4 ML* 1 DROP BTL ONE (14:25)
[2019-08-05] MEDS ORDERED: Phenylephrine OPHTH SOL 2.5%* 2 ML ONE (14:25)
== END 2019-08-05 09:39 | disposition home or self-care (01) ==
LOC: OREAST 07:36
PROVIDERS: ATTEND Ophthalmology
PROC: 08RJ3JZ Replacement of Right Lens with Synthetic Substitute, Percutaneous Approach (ICD-10-PCS; principal; 2019-08-05 09:00)
DX: H25.11 Age-related nuclear cataract, right eye (principal); E78.49 Other hyperlipidemia; R73.01 Impaired fasting glucose; Z88.7 Allergy status to serum and vaccine
CPT/HCPCS: A9270-GY; J2250; J3010; V2632

== ENCOUNTER 2019-08-12 07:54 | Day surgery (SDC) | payer MEDICARE ==
[2019-08-12] MEDS ORDERED: Midazolam* 1 MG/ML 2 ML VIAL (2 MG) ONE ×2 (09:27→09:35)
[2019-08-12 10:01] VITALS: BP 112/65
--- NOTE | 2019-08-12 11:21 | OP ---
DATE OF OPERATION: 08/12/19 [facility] DATE OF : 46 SURGEON: Dr. Lennox Womack. RESEARCH PROGRAM INTERNSHIP: None. ANESTHESIA: Topical with intravenous sedation. PRE-OP DIAGNOSIS: Cataract, left eye. POST-OP DIAGNOSIS: Cataract, left eye. OPERATIVE PROCEDURE: Phacoemulsification and cataract extraction with posterior chamber intraocular lens implant, left eye. COMPLICATIONS: None. BLOOD LOSS: None. DESCRIPTION OF PROCEDURE: The patient was brought to the operating room and received a small amount of intravenous sedation. A drop of Tetracaine was placed in her left eye. She was prepped and draped in the usual sterile fashion for ophthalmic surgery and attention was directed to the left eye where a speculum was placed. A paracentesis was created at the 5 o'clock position and 0.1 cc of 1 percent preservative-free Lidocaine was injected into the anterior chamber followed by DisCoVisc. The eye was digitally stabilized while a 2.75 mm keratome was used to create a triplanar clear corneal incision at the 3 o'clock position. A continuous curvilinear capsulorrhexis was created with a cystotome and Utrata forceps. BSS on a cannula was used to hydrodissect the lens from the capsule. Phacoemulsification was performed in a divide-and- conquer technique to create four fragments which were removed. Residual cortical material was removed with irrigation and aspiration. DisCoVisc was used to inflate the capsular bag and an AU00T0 14.0 diopter lens was folded and inserted into the capsular bag. DisCoVisc was removed using irrigation and aspiration. BSS on a cannula was used to hydrate the corneal stroma and seal the wound. At the end of the case the pupil was round and the lens was centered. The eye was of normal pressure and the wound was water tight. The speculum was removed and topical Maxitrol ointment was placed on the surface of the eye. The eye was closed, patched and shielded and the patient was sent to the recovery room in stable condition with post operative instructions and follow-up appointment given. [id number]/CPS #: [id number] BLAYNE
[2019-08-12] MEDS ORDERED: Phenylephrine OPHTH SOL 2.5%* 2 ML ONE (15:10)
[2019-08-12] MEDS ORDERED: Lidocaine 1% MPF ** 5 ML VIAL ONE (15:10)
[2019-08-12] MEDS ORDERED: Tropicamide 1% OPTH.SOL* BTL ONE (15:10)
[2019-08-12] MEDS ORDERED: Ketorolac 0.5% OPHTH (NF) 0.5 % 5 ML BTL ONE (15:10)
[2019-08-12] MEDS ORDERED: Neomycin/Polymy/Dex OPHTH.OIN* 3.5 GM ONE (15:10)
[2019-08-12] MEDS ORDERED: Tetracaine 0.5% OPTH.SOL 4 ML* 1 DROP BTL ONE (15:10)
== END 2019-08-12 10:10 | disposition home or self-care (01) ==
LOC: OREAST 07:54
PROVIDERS: ATTEND Ophthalmology
DX: H25.12 Age-related nuclear cataract, left eye (principal); E78.00 Pure hypercholesterolemia, unspecified; E78.5 Hyperlipidemia, unspecified
CPT/HCPCS: A9270-GY; J2250; V2632